=== PATIENT | male | born 1955 | race Caucasian/White ===

== ENCOUNTER 2018-09-13 12:11 | Outpatient (CLI) | payer OTHER, SELFPAY ==
--- NOTE | 2018-09-13 12:18 | DI.RAD.S_ITS ---
PROCEDURE: PAIN L INTERLAMINAR/CAUDAL INJ INDICATIONS: 61998 L5/S1 TL CED FINDINGS: Fluoroscopic spot filming was performed to verify placement of spinal needles at the L5-S1 level(s), as labeled on the films. Appropriate location(s) of the needle tip(s) was confirmed by injection of iodinated contrast. IMPRESSION: Fluoroscopy for pain management. Dictated by: Camden Ramos M.D. on 09/13/2018 at 17:41 Approved by: Camden Ramos M.D. on 09/13/2018 at 17:42
[2018-09-13 12:44] VITALS: BP 160/93; PULSE 59; RESP 18; TEMP 36.4; O2SAT 98
[2018-09-13 13:22] VITALS: BP 148/79; PULSE 67; RESP 18; O2SAT 97
[2018-09-13] MEDS: MIDAZOLAM 5 MG/5 ML VIAL IV (13:25)
[2018-09-13 13:27] VITALS: BP 118/61; PULSE 65; RESP 18; O2SAT 96
--- NOTE | 2018-09-13 13:38 | P.PCN_ITS ---
Procedures Date/Time Date of procedure: 09/13/18 Time of procedure: 13:37 General Procedure description: PROVIDER: Bill Rodríguez DO Operative Note PREOP DIAGNOSIS 1. HNP WITH RADICULAR FEATURES, 2. MULTILEVEL CENTRAL STENOSIS, POST OP DIAGNOSIS 1. HNP WITH RADICULAR FEATURES, 2. MULTILEVEL CENTRAL STENOSIS, PROCEDURES 1. FLUORSCOPICALLY GUIDED CONTRAST CONTROLLED INTERLAMINAR EPIDURAL STEROID INJECTION - L5/S1 PHYSICIAN: Bill Rodríguez DO INDICATIONS Giorgi is referred by for treatment of Bilateral Foraminal Stenosis L>R LE symptoms. FINDINGS Multilevel Central Spinal Stenosis with Nerve Root Compression DESCRIPTION OF PROCEDURE Fluoroscopically guided, contrast-controlled L5/S1 translaminar epidural steroid injection. Following denial of allergy and review of potential side effects and complications, including, but not necessarily limited to, infection, allergic reaction, local tissue breakdown, temporary as well as permanent nerve injury, paralysis, stroke and possible , the patient indicated that the patient understood and agreed to proceed. An informed consent document was signed by the patient, witnessed by a nurse, and placed in the patient's chart. Additionally, other treatment options including modalities, medications, and physical therapy were reviewed with the patient. After review of previous anaesthesic history and IV conscious sedation the patient was deemed safe to proceed with todays procedure with IV conscious sedation as ASA class II designation. Safety time-out was performed to confirm patient ID, procedure to be performed and site of procedure. IV sedation was accomplished with a combination of 4mg of Versed administered by the RN after DO order, titrated to patient comfort during the course of the procedure while the patient remained responsive to all verbal commands. In the prone position, following sterile prep and drape of the lumbar region, the L5/S1 translaminar space was identified fluoroscopically. The skin was anesthetized via a 25-gauge, 1.5-inch needle with 1% lidocaine solution. At this point, a 22-gauge short bevel spinal needle was atraumatically introduced and advanced under fluoroscopic guidance into the region of the L5/S1 translaminar space. Depth was confirmed on lateral view. Radiological data, including multiple fluoroscopic views of the lumbar spine, reveal a spinal needle at the L5/S1 translaminar space. Lateral views then show placement of the needle in the epidural space. Subsequent views show contrast material flowing superiorly and inferiorly in the epidural space. No vascular or intrathecal uptake is observed. At this point, using loss of resistance technique with saline and air, the epidural space was entered. This was confirmed following negative aspiration with injection of approximately 1.5 cc of Isovue 200, showing excellent epidural flow without vascular or intrathecal uptake. At this point, 1 cc of 1 % lidocaine solution combined with 3 cc or 20 mg of dexamethasone and 80mg Depo medrol was injected without incident. The patent tolerated the procedure without signs of symptoms of complications prior to transfer to the recovery area for further monitoring. The patient was then transferred to the recovery area where they were observed for an appropriate period of time after the injection. The patient reported a VAS score of 6 prior to the procedure and a post-procedure VAS of 0. Total Fluoroscopy Time: 11.8 seconds Total Conscious Sedation Time: 24min POST OP INSTRUCTIONS The patient was provided a Pain Log to continue to record their response to the target-specific procedure prior to follow-up visit with their referring physician. Additionally, specific post-injection care instructions and a contact number to our office were provided if concerns arise regarding possible complications associated with the procedure are suspected. Bill Rodríguez DO Complications: none
[2018-09-13 13:41] VITALS: BP 118/69; PULSE 61; RESP 16; O2SAT 96
--- NOTE | 2018-09-13 13:42 | PC.NURSE ---
ACCEPTED PT CARE IN POST PROC AREA IN STABLE CONDITION
[2018-09-13 13:47] VITALS: BP 124/87; PULSE 59; RESP 16; O2SAT 96
--- NOTE | 2018-09-13 13:47 | PC.NURSE ---
pt tolerated procedure, is still alert and awake, able to get off the table with standby assist. Transferred pt via wheelchair to pre procedure room, Resumed monitoring by Samia SAHNI.
[2018-09-13] MEDS: IOPAMIDOL 15 ML VIAL 3 ML INJ (13:49)
[2018-09-13] MEDS: BUPIVACAINE 0.25% (PF) VIAL 2 ML INJ (13:49)
[2018-09-13] MEDS: methylPREDNISolone acetate 80 MG/ML VIAL INJ (13:50)
[2018-09-13] MEDS: DEXAMETHASONE 10 MG/ML VIAL 20 MG INJ (13:50)
[2018-09-13 13:55] VITALS: BP 105/48; PULSE 57; RESP 16; O2SAT 96
--- NOTE | 2018-09-14 16:05 | PC.NURSE ---
FOLLOW UP CALL MADE. PT STATES BILAT HIP PAIN IS SIGNIFICANTLY BETTER THAN BEFORE PROCEDURE. DENIES QUESITONS/CONCERNS.
== END 2018-09-13 14:30 | disposition home or self-care (01) ==
LOC: RAD 12:15
PROVIDERS: PCP Internal Medicine; Visit Provider Physical Medicine & Rehabilitation
DX: M51.17 Intervertebral disc disorders with radiculopathy, lumbosacral region (principal); M51.16 Intervertebral disc disorders with radiculopathy, lumbar region; M48.07 Spinal stenosis, lumbosacral region
CPT/HCPCS: 62323; 99152; J1040; J1100; J2250

== ENCOUNTER → 2018-11-03 09:09 | Outpatient (CLI) | payer OTHER, SELFPAY ==
--- NOTE | 2018-11-03 09:10 | DI.RAD.S_ITS ---
PROCEDURE: XR LUMBAR SPINE MIN 4V INDICATIONS: Bilateral L4-5 L5-S1 facet pain TECHNIQUE: 5 views of the lumbar spine were acquired. COMPARISON: [facility] GARIMA Becker, XR LUMBAR SPINE WITH OBLIQUES, 08/26/2017, 7:52. FINDINGS: Bones: No fracture or focal osseous destruction. Grade 1 anterolisthesis of L3 on L4. Diffuse facet arthropathy. Multilevel endplate spurring and sclerosis. [id number] narrowing of the L5-S1, L3-L4 disc spaces although this appears unchanged. There is also grade one anterolisthesis of L4 on L5 although this is unchanged. Mild levocurvature as before. Mild bilateral hip degeneration. Soft tissues: Overlying bowel gas pattern is normal. No suspicious soft tissue calcifications. Oblique images: No pars defects. IMPRESSION: No interval change in levocurvature of the lumbar spine, with diffuse spondylosis most pronounced at L3-L4 and L5-S1 and facet arthropathy. Grade 1 anterolisthesis of L3 on L4 and L4 on L5 as before. Dictated by: Tim Betancourt M.D. on 11/03/2018 at 11:02 Approved by: Tim Betancourt M.D. on 11/03/2018 at 11:04
== END ==
PROVIDERS: PCP Internal Medicine; Visit Provider Physical Medicine & Rehabilitation
DX: M47.817 Spondylosis without myelopathy or radiculopathy, lumbosacral region (principal); M47.816 Spondylosis without myelopathy or radiculopathy, lumbar region; M43.16 Spondylolisthesis, lumbar region
CPT/HCPCS: 72110

== ENCOUNTER 2018-11-22 08:07 | Outpatient (CLI) | payer OTHER, SELFPAY ==
[2018-11-22] VITALS (9 sets, daily range): BP systolic 126–174; BP diastolic 83–116; PULSE 55–71; RESP 16–18; TEMP 36.1; O2SAT 93–98
--- NOTE | 2018-11-22 08:10 | DI.RAD.S_ITS ---
PROCEDURE: PAIN L/SI FACET INJ/BLK 1STL INDICATIONS: Bilateral L3-4 L4-5 facet FINDINGS: Fluoroscopic spot filming was performed to verify placement of spinal needles at the facet joints of the L3-4 and L4-5 levels bilaterally, as labeled on the films. Appropriate location(s) of the needle tip(s) was confirmed by injection of iodinated contrast. IMPRESSION: Bilateral facet joint localization at L3-4 and L4-5 for anticipated facet joint steroid injections. Dictated by: Jimbo Cotter M.D. on 11/22/2018 at 11:07 Approved by: Jimbo Cotter M.D. on 11/22/2018 at 11:08
[2018-11-22] MEDS: MIDAZOLAM 5 MG/5 ML VIAL IV (09:18)
[2018-11-22] MEDS: LIDOCAINE 1% 20 ML INJ 10 ML INJ (09:26)
[2018-11-22] MEDS: BUPIVACAINE 0.5% (PF) VIAL 2 ML INJ (09:27)
[2018-11-22] MEDS: IOPAMIDOL 15 ML VIAL 3 ML INJ (09:27)
[2018-11-22] MEDS: BETAMETHASONE 30 MG/5 ML MDV 12 MG INJ (09:28)
--- NOTE | 2018-11-22 09:37 | P.PCN_ITS ---
Procedures Date/Time Date of procedure: 11/22/18 Time of procedure: 09:36 General Procedure description: PREOP DIAGNOSIS 1. FACET ARTHROPATHY 2. AXIAL LBP 3. MULTILEVEL DDD POST OP DIAGNOSIS 1. FACET ARTHROPATHY 2. AXIAL LBP 3. MULTILEVEL DDD PROCEDURES 1. FLUORSCOPICALLY GUIDED CONTRAST CONTROLLED FACET JOINT INJECTIONS BILATERAL L3/4, L4/5 PHYSICIAN: Bill Rodríguez DO INDICATIONS: Giorgi is referred by Dr. Nicholson for treatment of Axial LBP FINDINGS Multilevel Facet Arthropathy with Clinically significant axial LBP DESCRIPTION OF PROCEDURE Fluoroscopically guided, contrast-controlled bilateral L3/4, L4/5 facet joint injections. Following denial of allergy and review of potential side effects and complications, including, but not necessarily limited to, infection, allergic reaction, local tissue breakdown, stroke, temporary or permanent nerve injury, paralysis, and possible , the patient indicated that the patient understood and agreed to proceed. An informed consent document was signed by the patient, witnessed by a nurse, and placed in the patient's chart. Additionally, other treatment options including medications, modalities, and physical therapy were reviewed with the patient. After review of previous anaesthesic history and IV conscious sedation the patient was deemed safe to proceed with todays procedure with IV conscious sedation as ASA class II designation. Safety time-out was performed to confirm patient ID, procedure to be performed and site of procedure. IV sedation was accomplished with a combination of 3mg of Versed was administered by the RN after DO order, titrated to patient comfort during the course of the procedure while the patient remained responsive to all verbal commands. In the prone position, following sterile prep and drape of the lumbar region, the posterior aspect of the L3/4, L4/5 facet joints were identified fluoroscopically. The skin was anesthetized via a 25-gauge 1.5-inch needle with 1% lidocaine solution into the corresponding facet joints. At this point, a 22- gauge 3.5-inch spinal needle was atraumatically introduced and advanced under fluoroscopic guidance into the corresponding facet joints. Following negative aspiration, injections of approximately 0.2-cc of Isovue 200 confirmed interarticular placement without vascular uptake. The identical procedure was then performed at the L3/4, L4/5 facet joints on the left. Radiological data, including multiple fluoroscopic views of the lumbosacral spine, reveal a spinal needle at the L3/4, L4/5 facet joints bilaterally. Subsequent views show flow of contrast material both superiorly and inferiorly within the joint space without vascular or intrathecal uptake. At this point, a total of 0.5 cc including a mixture of 0.25 cc Marcaine and 0.25 cc betamethasone was injected without complication into each of the corresponding facet joints. The patient tolerated the procedure well without signs or symptoms of complications prior to transfer to the recovery area continued monitoring without incident. The patient was then transferred to the recovery area where they were observed for an appropriate period of time after the injection. The patient reported a VAS score of 7 prior to the procedure and a post-procedure VAS of 0. Total Fluoroscopy Time: 20.3 seconds Total Conscious Sedation Time: 24min POST OP INSTRUCTIONS The patient was provided a Pain Log to continue to record their response to the target-specific procedure prior to follow-up visit with their referring physician. Additionally, specific post-injection care instructions and a contact number to our office were provided if concerns arise regarding possible complications associated with the procedure are suspected. Bill Rodríguez DO Complications: none
--- NOTE | 2018-11-22 10:34 | PC.NURSE ---
Pt returned from post procedure awake and alert and in a w/c. He was able to get from w/c to chair with standby assist. Resumed monitoring from Samia SAHNI.
--- NOTE | 2018-11-23 14:38 | PC.NURSE ---
FOLLOW UP CALL MADE, PT STATES HE FEELS FINE AND HAS ZERO PAIN. PT C/O AKWARDNESS RT DISORGANIZATION IN PROCEDURE ROOM AND PERSONAL CONVERSATION AMONG TEAM DURING PROCEDURE. THANKED PT FOR FEEDBACK AND APOLOGIZED FOR HIS DISCOMFORT. WILL RELAY INFORMATION TO DR. JETER.
== END 2018-11-22 10:06 ==
LOC: RAD 08:09
PROVIDERS: PCP Internal Medicine; Visit Provider Physical Medicine & Rehabilitation
DX: M47.816 Spondylosis without myelopathy or radiculopathy, lumbar region (principal); M51.36 Other intervertebral disc degeneration, lumbar region; M54.5 Low back pain
CPT/HCPCS: 64493; 64494; 99152; J0702; J2250; J3010

== ENCOUNTER → 2018-11-28 11:15 | Outpatient (CLI) | payer OTHER, SELFPAY ==
--- NOTE | 2018-11-28 11:19 | DI.RAD.S_ITS ---
PROCEDURE: XR KNEE STANDING BI INDICATIONS: Knee pain TECHNIQUE: 2 views of the left knee, and 2 views of the right knee. COMPARISON: [facility], CR, XR KNEE ARTHRITIC SERIES LT, 07/03/2016, 7:44. [facility], MR KNEE LT WO CON, 07/14/2016, 11:19. FINDINGS: Bones: No acute fractures or dislocations. There is moderate to severe bilateral medial, left greater than right compartment narrowing, demonstrate interval progression compared to 2016. Smaller as is subchondral sclerosis and periarticular osteophytes are present. In addition, moderate bilateral patellofemoral compartment narrowing is present. Soft tissues: No knee joint effusions. No suspicious soft tissue calcification. IMPRESSION: Medial and patellofemoral compartment narrowing bilaterally most significant in the medial compartment on the left as above. Overall appearance is most suggestive of osteoarthritis. Dictated by: Erendira Hunt M.D. on 11/28/2018 at 11:58 Approved by: Erendira Hunt M.D. on 11/28/2018 at 12:00
== END ==
PROVIDERS: PCP Internal Medicine; Visit Provider Physical Medicine & Rehabilitation
DX: M25.562 Pain in left knee (principal); M25.561 Pain in right knee; S89.90XA Unspecified injury of unspecified lower leg, initial encounter
CPT/HCPCS: 73565

== ENCOUNTER 2019-09-12 07:23 | Outpatient (CLI) | payer OTHER, SELFPAY ==
[2019-09-12] VITALS (8 sets, daily range): BP systolic 149–210; BP diastolic 90–113; PULSE 58–67; RESP 16; TEMP 36.1; O2SAT 94–98
--- NOTE | 2019-09-12 07:24 | DI.RAD.S_ITS ---
PROCEDURE: PAIN L/S TRANSFORAMINAL INJECT INDICATIONS: SPINAL STENOSIS FINDINGS: Fluoroscopic spot filming was performed to verify placement of spinal needles at the L4-L5 level(s), as labeled on the films. Appropriate location(s) of the needle tip(s) was confirmed by injection of iodinated contrast. Dictated by: Tim Betancourt M.D. on 09/12/2019 at 11:11 Approved by: Tim Betancourt M.D. on 09/12/2019 at 11:11
--- NOTE | 2019-09-12 08:57 | PC.NURSE ---
Dr Rodríguez AWARE OF HIGH BP, NO NEW ORDERS, HE HAS STATED IT'S SAFE TO PROCEED.
[2019-09-12] MEDS: MIDAZOLAM 5 MG/5 ML VIAL IV (08:58)
[2019-09-12] MEDS: fentaNYL 100 MCG/2 ML INJ 50 MCG IV (08:59)
[2019-09-12] MEDS: BUPIVACAINE 0.25% (PF) VIAL 2 ML INJ (09:10)
[2019-09-12] MEDS: IOPAMIDOL 15 ML VIAL 3 ML INJ (09:10)
[2019-09-12] MEDS: DEXAMETHASONE 10 MG/ML VIAL 20 MG INJ (09:10)
[2019-09-12] MEDS: BETAMETHASONE 30 MG/5 ML MDV 6 MG INJ (09:11)
--- NOTE | 2019-09-12 09:17 | PC.NURSE ---
ASSISTING PT OFF TABLE AND TRANSPORTING TO POST PROC AREA IN STABLE CONDITION. PASSING RN CARE OF PT TO NOLA Woods RN.
--- NOTE | 2019-09-12 09:26 | P.PCN_ITS ---
Procedures Date/Time Date of procedure: 09/12/19 Time of procedure: 09:26 General Procedure description: PREOP DIAGNOSIS 1. FORMAINAL STENOSIS WITH LE SYMPTOMS POST OP DIAGNOSIS 1. FORMAINAL STENOSIS WITH LE SYMPTOMS PROCEDURES 1. FLUOROSCOPICALLY GUIDED CONTRAST CONTROLLED TRANSFORAMINAL EPIDURAL STEROID INJECTION - LEFT L4/5 PHYSICIAN: Bill Rodríguez DO INDICATIONS: Giorgi is referred by for treatment of Foraminal Stenosis with Left LE Symptoms FINDINGS Foraminal Nerve Root Compression secondary to disc disease and facet hypertrophy DESCRIPTION OF PROCEDURE: Following review of allergy and review of potential side effects and complications, including, but not necessarily limited to, infection, allergic reaction, local tissue breakdown, stroke, temporary or permanent nerve injury, paralysis, and possible , the patient indicated that the patient understood and agreed to proceed. An informed consent document was signed by the patient, witnessed by a nurse, and placed in the patient's chart. Additionally, other treatment options including medications, modalities, and physical therapy were reviewed with the patient. After review of previous anaesthesic history and IV conscious sedation the joni ent was deemed safe to proceed with todays procedure with IV conscious sedation as ASA class II designation. Safety time-out was performed to confirm patient ID, procedure to be performed and site of procedure. IV sedation was accomplished with a combination of 4mg of Versed and 50mcg of Fentanyl administered by the RN after DO order, titrated to patient comfort during the course of the procedure while the patient remained responsive to all verbal commands In the prone position following sterile prep and drape of the lumbar region, the left L4/5 posterior neuroforamen was identified fluoroscopically. The skin was anesthetized via a 25-gauge 1.5-inch needle with 1% lidocaine solution. At this point, a 22-gauge 5-inch spinal needle was atraumatically introduced and advanced under fluoroscopic guidance through the posterior left L4/5 neuroforamen to approximately the anterior aspect of the canal. Depth was confirmed on lateral view. Following negative aspiration, injection of appro ximately 1.5cc of Isovue 200 under live fluoroscopy in the AP view confirmed excellent flow along the nerve root, into the epidural space without vascular or intrathecal uptake observed Radiological data, including multiple fluoroscopic views of the lumbosacral spine, reveal a spinal needle at the left L4/5 posterior neuroforamen. Subsequent views show flow of contrast material flowing superiorly and inferiorly along the nerve root confirming epidural flow. Subsequently, a test dose of 1.5 cc of 1% lidocaine solution was administered and patient was observed for two minutes for signs or symptoms of complications, including abdominal pain, shortness of breath, bilateral upper or lower extremity weakness, nausea and vomiting, prior to steroid injection. At this point, a total of 3cc or 20mg of dexamethasone and 6mg of betamethasone was injected without incident. The procedure tolerated the procedure well without signs or symptoms of complications prior to transfer to the recovery area continued monitoring without incident. The patient was then transferred to the recovery area where they were observed for an appropriate time after the injection. The patient reported a VAS score of 7 prior to the procedure and a post- procedure VAS of 0. Total Fluoroscopy Time: 19 seconds Total Conscious Sedation Time: 24min POST OP INSTRUCTIONS The patient was provided a Pain Log to continue to record their response to the target-specific procedure prior to follow-up visit with their referring physician. Additionally, specific post-injection care instructions and a contact number to our office were provided if concerns arise regarding possible complications associated with the procedure are suspected. Bill Rodríguez DO Complications: none
== END 2019-09-12 09:48 | disposition home or self-care (01) ==
PROVIDERS: PCP Internal Medicine; Visit Provider Physical Medicine & Rehabilitation
DX: M48.061 Spinal stenosis, lumbar region without neurogenic claudication (principal); M51.16 Intervertebral disc disorders with radiculopathy, lumbar region
CPT/HCPCS: 64483; 99152; J0702; J1100; J2250; J3010

== ENCOUNTER → 2020-02-08 14:00 | Outpatient (CLI) | payer OTHER, SELFPAY | PROVIDERS: PCP Internal Medicine; Referring Provider Physical Medicine & Rehabilitation; Visit Provider Physical Medicine & Rehabilitation | DX: G62.9 Polyneuropathy, unspecified (principal) | CPT/HCPCS: 95886; 95912 ==

== ENCOUNTER → 2020-09-23 09:10 | Outpatient (CLI) | payer OTHER, SELFPAY ==
--- NOTE | 2020-09-23 09:11 | DI.RAD.S_ITS ---
PROCEDURE: XR LUMBAR SPINE MIN 4V INDICATIONS: UPDATE IMAGING TECHNIQUE: 5 views of the lumbar spine were acquired, including bilateral oblique views. COMPARISON: [facility], MR LUMBAR SPINE WITHOUT CONTRAST, 09/02/2017, 10:20. [facility], CR, XR LUMBAR SPINE WITH OBLIQUES, 08/26/2017, 7:52. FINDINGS: Bones: 5 nonrib-bearing vertebrae are present. There is trace levoconvex curvature of the lumbar spine. Grade 1 anterolisthesis of L3 on L4 does not appear significantly changed when compared to the prior exam from 08/26/2017. No vertebral body compression fractures. No suspicious bony lesions. Multilevel disc space narrowing and degenerative endplate changes are seen that are slightly more prominent at the L5-S1 and L3-4 levels. Prominent facet hypertrophy is seen throughout the lumbar spine that is worst at the L3-4 level. Soft tissues: Overlying bowel gas pattern is normal. No suspicious soft tissue calcifications. Atherosclerotic calcifications are seen in the aorta. Cholecystectomy clips are present. Oblique images: No pars defects. IMPRESSION: Multilevel degenerative changes appear mildly progressed when compared to the radiographs from 08/26/2017. If indicated clinically, lumbar spine MRI may be obtained for further evaluation of soft tissues and spinal canal contents. Dictated by: Luke Almaguer M.D. on 09/23/2020 at 10:55 Approved by: Luke Almaguer M.D. on 09/23/2020 at 11:01
== END ==
PROVIDERS: PCP Internal Medicine; Referring Provider Physical Medicine & Rehabilitation; Visit Provider Physical Medicine & Rehabilitation
DX: M47.817 Spondylosis without myelopathy or radiculopathy, lumbosacral region (principal); M46.96 Unspecified inflammatory spondylopathy, lumbar region
CPT/HCPCS: 72110

== ENCOUNTER → 2020-11-12 12:31 | Outpatient (CLI) | payer OTHER, SELFPAY ==
[2020-11-12 13:35] LABS: COVID19 -Nasal RAPID Negative (Negative)
== END ==
PROVIDERS: PCP Internal Medicine; Visit Provider Physical Medicine & Rehabilitation
DX: Z20.822 Contact with and (suspected) exposure to COVID-19 (principal)
CPT/HCPCS: 87635; C9803

== ENCOUNTER 2020-11-14 07:24 | Outpatient (CLI) | payer OTHER, SELFPAY ==
[2020-11-14] VITALS (10 sets, daily range): BP systolic 126–188; BP diastolic 77–110; PULSE 53–82; RESP 17–21; TEMP 36.2; O2SAT 93–98
--- NOTE | 2020-11-14 07:26 | DI.RAD.S_ITS ---
PROCEDURE: PAIN L INTERLAMINAR/CAUDAL INJ INDICATIONS: SPONDYLOSIS COMPARISON: [facility], XA, PAIN L INTERLAMINAR/CAUDAL INJ, 09/13/2018, 13:29. FINDINGS: Fluoroscopic spot filming was performed to verify placement of a spinal needle at the L5-S1 level, as labeled on the films. Appropriate location of the needle tip was confirmed by injection of iodinated contrast. IMPRESSION: No significant intraprocedural abnormality. Dictated by: Gilmer Voss M.D. on 11/14/2020 at 8:37 Approved by: Gilmer Voss M.D. on 11/14/2020 at 8:37
[2020-11-14] MEDS: fentaNYL 100 MCG/2 ML INJ 50 MCG IV (08:32)
[2020-11-14] MEDS: IOPAMIDOL 15 ML VIAL 3 ML INJ (08:38)
[2020-11-14] MEDS: BUPIVACAINE 0.25% (PF) VIAL 2 ML INJ (08:38)
[2020-11-14] MEDS: DEXAMETHASONE 10 MG/ML VIAL 20 MG INJ (08:39)
[2020-11-14] MEDS: methylPREDNISolone acetate 80 MG/ML VIAL INJ (08:39)
[2020-11-14] MEDS: MIDAZOLAM 5 MG/5 ML VIAL IV (08:41)
--- NOTE | 2020-11-14 08:48 | P.PCN_ITS ---
Date/Time/Diagnoses Date of procedure: 11/14/20 Time of procedure: 08:48 Pre-procedure diagnosis: 1. HNP WITH RADICULAR FEATURES, 2. MULTILEVEL CENTRAL STENOSIS, Post-procedure diagnosis: same Procedure Notes Procedure: 1. FLUOROSCOPICALLY GUIDED CONTRAST CONTROLLED INTERLAMINAR EPIDURAL STEROID INJECTION - L5/S1 Indications: Giorgi is referred by Dr. Nicholson for treatment of Bilateral Foraminal Stenosis L>R LE symptoms. Physician: Bill Rodríguez Total Fluoroscopy time (seconds): 8 Total sedation minutes: 12 Complications: none Procedure in detail & Post-procedure care: FINDINGS Multilevel Central Spinal Stenosis with Nerve Root Compression DESCRIPTION OF PROCEDURE Fluoroscopically guided, contrast-controlled L5/S1 translaminar epidural steroid injection. Following review of allergy and review of potential side effects and complications, including, but not necessarily limited to, infection, allergic reaction, local tissue breakdown, temporary as well as permanent nerve injury, paralysis, stroke and possible , the patient indicated that the patient understood and agreed to proceed. An informed consent document was signed by the patient, witnessed by a nurse, and placed in the patient's chart. Additionally, other treatment options including modalities, medications, and physical therapy were reviewed with the patient. After review of previous anaesthesic history and IV conscious sedation the patient was deemed safe to proceed with today?s procedure with IV conscious sedation as ASA class II designation. Safety time-out was performed to confirm patient ID, procedure to be performed and site of procedure. IV sedation was accomplished with a combination of 4mg of Versed and 50mcg of Fentanyl administered by the RN after DO order, titrated to patient comfort during the course of the procedure while the patient remained responsive to all verbal commands. In the prone position, following sterile prep and drape of the lumbar region, the L5/S1 translaminar space was identified fluoroscopically. The skin was anesthetized via a 25-gauge, 1.5-inch needle with 1% lidocaine solution. At this point, a 22-gauge short bevel spinal needle was atraumatically introduced and advanced under fluoroscopic guidance into the region of the L5/S1 translaminar space. Depth was confirmed on lateral view. Radiological data, including multiple fluoroscopic views of the lumbar spine, reveal a spinal needle at the L5/S1 translaminar space. Lateral views then show placement of the needle in the epidural space. Subsequent views show contrast material flowing superiorly and inferiorly in the epidural space. No vascular or intrathecal uptake is observed. At this point, using loss of resistance technique with saline and air, the epidural space was entered. This was confirmed following negative aspiration with injection of approximately 1.5cc of Isovue 200, showing excellent epidural flow without vascular or intrathecal uptake. At this point, 1 cc of 1% lidocaine solution combined with 3cc or 20mg of dexamethasone and 80mg of depo- medrol was injected without incident. The patent tolerated the procedure without signs of symptoms of complications prior to transfer to the recovery area for further monitoring. The patient was then transferred to the recovery area where they were observed for an appropriate period of time after the injection. The patient reported a VAS score of 6 prior to the procedure and a post-procedure VAS of 0. POST OP INSTRUCTIONS The patient was provided a Pain Log to continue to record their response to the target-specific procedure prior to follow-up visit with their referring physician. Additionally, specific post-injection care instructions and a contact number to our office were provided if concerns arise regarding possible complications associated with the procedure are suspected.
== END 2020-11-14 09:15 | disposition home or self-care (01) ==
PROVIDERS: PCP Internal Medicine; Referring Provider Internal Medicine; Visit Provider Physical Medicine & Rehabilitation
DX: G62.9 Polyneuropathy, unspecified (principal); M43.16 Spondylolisthesis, lumbar region; M48.061 Spinal stenosis, lumbar region without neurogenic claudication; M51.27 Other intervertebral disc displacement, lumbosacral region
CPT/HCPCS: 62323; 99152; J1040; J1100; J2250; J3010

== ENCOUNTER → 2021-03-31 10:08 | Outpatient (CLI) | payer OTHER, SELFPAY ==
[2021-03-31 11:55] LABS: COVID19 -Nasal RAPID Negative (Negative)
== END ==
PROVIDERS: PCP Internal Medicine; Visit Provider Physical Medicine & Rehabilitation
DX: Z20.822 Contact with and (suspected) exposure to COVID-19 (principal)
CPT/HCPCS: 87635; C9803

== ENCOUNTER 2021-04-03 07:52 | Outpatient (CLI) | payer BC, SELFPAY ==
[2021-04-03] VITALS (7 sets, daily range): BP systolic 149–201; BP diastolic 77–119; PULSE 56–65; RESP 10–19; TEMP 36.6; O2SAT 96–98
--- NOTE | 2021-04-03 07:56 | DI.RAD.S_ITS ---
PROCEDURE: PAIN L INTERLAMINAR/CAUDAL INJ INDICATIONS: L5/S1 TL CED COMPARISON: [facility], CR, XR PELVIS WITH LATERAL HIP RIGHT, 07/04/2020, 7:55. [facility], CR, XR LUMBAR SPINE MIN 4V, 09/23/2020, 9:17. FINDINGS: Fluoroscopic spot filming was performed to verify placement of spinal needles at the L5-S1 level(s), as labeled on the films. Appropriate location(s) of the needle tip(s) was confirmed by injection of iodinated contrast. IMPRESSION: Fluoroscopy for pain management. Dictated by: Camden Ramos M.D. on 04/03/2021 at 9:57 Approved by: Camden Ramos M.D. on 04/03/2021 at 9:58
[2021-04-03] MEDS: MIDAZOLAM 5 MG/5 ML VIAL IV (08:36)
[2021-04-03] MEDS: fentaNYL 100 MCG/2 ML INJ 50 MCG IV (08:36)
[2021-04-03] MEDS: BUPIVACAINE 0.25% (PF) VIAL 2 ML INJ (08:41)
[2021-04-03] MEDS: IOPAMIDOL 15 ML VIAL 3 ML INJ (08:41)
[2021-04-03] MEDS: DEXAMETHASONE 10 MG/ML VIAL 20 MG INJ (08:42)
[2021-04-03] MEDS: methylPREDNISolone acetate 80 MG/ML VIAL INJ (08:42)
--- NOTE | 2021-04-03 08:51 | P.PCN_ITS ---
Date/Time/Diagnoses Date of procedure: 04/03/21 Time of procedure: 08:51 Pre-procedure diagnosis: 1. HNP WITH RADICULAR FEATURES, 2. MULTILEVEL CENTRAL STENOSIS, Post-procedure diagnosis: same Procedure Notes Procedure: 1. FLUOROSCOPICALLY GUIDED CONTRAST CONTROLLED INTERLAMINAR EPIDURAL STEROID INJECTION - L5/S1 Indications: Giorgi is referred by Dr. Nicholson for treatment of Bilateral Foraminal Stenosis L>R LE symptoms. Physician: Bill Rodríguez Total Fluoroscopy time (seconds): 7 Total sedation minutes: 9 Complications: none Procedure in detail & Post-procedure care: FINDINGS Multilevel Central Spinal Stenosis with Nerve Root Compression DESCRIPTION OF PROCEDURE Fluoroscopically guided, contrast-controlled L5/S1 translaminar epidural steroid injection. Following review of allergy and review of potential side effects and complications, including, but not necessarily limited to, infection, allergic reaction, local tissue breakdown, temporary as well as permanent nerve injury, paralysis, stroke and possible , the patient indicated that the patient understood and agreed to proceed. An informed consent document was signed by the patient, witnessed by a nurse, and placed in the patient's chart. Additionally, other treatment options including modalities, medications, and physical therapy were reviewed with the patient. After review of previous anaesthesic history and IV conscious sedation the patient was deemed safe to proceed with today?s procedure with IV conscious sedation as ASA class II designation. Safety time-out was performed to confirm p atient ID, procedure to be performed and site of procedure. IV sedation was accomplished with a combination of 2mg of Versed and 50mcg of Fentanyl administered by the RN after DO order, titrated to patient comfort during the course of the procedure while the patient remained responsive to all verbal commands. In the prone position, following sterile prep and drape of the lumbar region, the L5/S1 translaminar space was identified fluoroscopically. The skin was anesthetized via a 25-gauge, 1.5-inch needle with 1% lidocaine solution. At this point, a 22-gauge short bevel spinal needle was atraumatically introduced and advanced under fluoroscopic guidance into the region of the L5/S1 translaminar space. Depth was confirmed on lateral view. Radiological data, including multiple fluoroscopic views of the lumbar spine, reveal a spinal needle at the L5/S1 translaminar space. Lateral views then show placement of the needle in the epidural space. Subsequent views show contrast material flowing superiorly and inferiorly in the epidural space. No vascular or intrathecal uptake is observed. At this point, using loss of resistance technique with saline and air, the epidural space was entered. This was confirmed following negative aspiration with injection of approximately 1.5cc of Isovue 200, showing excellent epidural flow without vascular or intrathecal uptake. At this point, 1 cc of 1% lidocaine solution combined with 3cc or 20mg of dexamethasone and 80mg of depo medrol was injected without incident. The patent tolerated the procedure without signs of symptoms of complications prior to transfer to the recovery area for further monitoring. The patient was then transferred to the recovery area where they were observed for an appropriate period of time after the injection. The patient reported a VAS score of 6 prior to the procedure and a post-procedure VAS of 0. POST OP INSTRUCTIONS The patient was provided a Pain Log to continue to record their response to the target-specific procedure prior to follow-up visit with their referring physician. Additionally, specific post-injection care instructions and a contact number to our office were provided if concerns arise regarding possible complications associated with the procedure are suspected.
== END 2021-04-03 09:12 | disposition home or self-care (01) ==
LOC: RAD 07:55
PROVIDERS: PCP Internal Medicine; Referring Provider Physical Medicine & Rehabilitation; Visit Provider Physical Medicine & Rehabilitation
DX: M51.17 Intervertebral disc disorders with radiculopathy, lumbosacral region (principal); M48.07 Spinal stenosis, lumbosacral region
CPT/HCPCS: 62323; J1040; J1100; J2250; J3010

== ENCOUNTER → 2021-08-18 09:53 | Outpatient (CLI) | payer BC, MEDICARE, SELFPAY ==
[2021-08-18 14:05] LABS: COVID19 -Nasal RAPID Negative (Negative)
== END ==
PROVIDERS: PCP Internal Medicine; Visit Provider Physical Medicine & Rehabilitation
DX: Z20.822 Contact with and (suspected) exposure to COVID-19 (principal)
CPT/HCPCS: 87635; C9803

== ENCOUNTER 2021-08-19 08:00 | Outpatient (CLI) | payer BC, SELFPAY ==
[2021-08-19] VITALS (8 sets, daily range): BP systolic 157–212; BP diastolic 87–132; PULSE 62–67; RESP 12–22; TEMP 36.3; O2SAT 95–100
--- NOTE | 2021-08-19 08:03 | DI.RAD.S_ITS ---
PROCEDURE: PAIN L/S FACET INJ/BLK 1ST MITUL COMPARISON: None. INDICATIONS: SPONDYLOSIS FINDINGS: Fluoroscopic spot filming was performed to verify placement of spinal needles on the right and on the left at the L3, L4, and L5 levels, as labeled on the films. Appropriate location of the needle tips was confirmed by injection of iodinated contrast. IMPRESSION: Intraprocedural examination within normal limits. Dictated by: Gilmer Voss M.D. on 08/19/2021 at 9:08 Approved by: Gilmer Voss M.D. on 08/19/2021 at 9:09
[2021-08-19] MEDS: fentaNYL 100 MCG/2 ML INJ (09:15)
[2021-08-19] MEDS: MIDAZOLAM 5 MG/5 ML VIAL IV (09:15)
[2021-08-19] MEDS: IOPAMIDOL 15 ML VIAL INJ (09:19)
[2021-08-19] MEDS: BUPIVACAINE 0.5% (PF) VIAL 5 ML INJ (09:20)
[2021-08-19] MEDS: LIDOCAINE 1% 20 ML INJ (09:20)
--- NOTE | 2021-08-19 09:36 | P.PCN_ITS ---
Date/Time/Diagnoses Date of procedure: 08/19/21 Time of procedure: 09:36 Pre-procedure diagnosis: 1. FACET ARTHROPATHY Post-procedure diagnosis: same Procedure Notes Procedure: 1. BILATERAL L3, L4 AND L5 DIAGNOSTIC MB BLOCKS Indications: Giorgi is referred by Dr. Nicholson for treatment of Bilateral Axial LBP. Physician: Bill Rodríguez Total Fluoroscopy time (seconds): 13 Total sedation minutes: 15 Complications: none Procedure in detail & Post-procedure care: DESCRIPTION OF PROCEDURE Fluoroscopically guided, contrast-controlled bilateral L3, L4 AND L5 medial branch blocks with 0.5cc of 0.5% Marcaine. Following review of allergy and review of potential side effects and complications, including, but not necessarily limited to, infection, allergic reaction, local tissue breakdown, nerve injury, paralysis, stroke and possible , the patient indicated that the patient understood and agreed to proceed. An informed consent document was signed by the patient, witnessed by a nurse, and placed in the patient's chart. After review of previous anaesthesic history and IV conscious sedation the patient was deemed safe to proceed with today's procedure with IV conscious sedation as ASA class II designation. Safety time-out was performed to confirm patient ID, procedure to be performed and site of procedure. IV sedation was accomplished with a combination of 3mg of Versed and 50mcg of Fentantyl was administered by the RN after DO order, titrated to patient comfort during the course of the procedure while the patient remained responsive to all verbal commands In the prone position, following sterile prep and drape of the lumbar region, the right L3, L4 AND L5 anatomical location of the medial branch of the dorsal ramus was identified fluoroscopically. Subsequently an anesthetic skin wheal using 1% lidocaine solution was initiated at each of the anatomical spots. Subsequently then a 22-gauge 3.5-inch spinal needle was atraumatically introduced and advanced under fluoroscopic guidance at each of the corresponding sites at the right L3, L4 and L5 MB. After negative aspiration, 0.2cc of Isovue 200 was injected, confirming placement without vascular or intrathecal uptake. Subsequently then 0.5cc of 0.5% Marcaine solution was injected at each of the corresponding sites at the right L3, L4 and L5 medial branch locations. The identical procedure was replicated on the left. The patient tolerated the procedure well without signs or symptoms of complications. The patient tolerated the procedure well without signs or symptoms of complications prior to transfer to the recovery area continued monitoring without incident. Post-procedure, the patient was monitored initiating provocative activities to measure the amount of relief from block of the facetogenic pain. The patient reported a VAS of 7 prior to the procedure and a post-procedure VAS of 1. It has been a pleasure to assist in the diagnostic and therapeutic care of your patient. POST OP INSTRUCTIONS The patient was provided with a Pain Log to complete over the next several hours and subsequent days prior to the patient's follow up with the ordering physician. If the patient has wrapping machine helper relief to the solution applied, then they may be a candidate for medial branch rhizotomy. The patient is aware, was provided, once again, with a Pain Log and will follow up with the referring physician for review and clinical correlation
== END 2021-08-19 09:54 | disposition home or self-care (01) ==
LOC: RAD 08:02
PROVIDERS: PCP Internal Medicine; Referring Provider Physical Medicine & Rehabilitation; Visit Provider Physical Medicine & Rehabilitation
DX: M47.816 Spondylosis without myelopathy or radiculopathy, lumbar region (principal)
CPT/HCPCS: 64493; 64494; 99152; J2250; J3010

== ENCOUNTER → 2021-09-24 09:16 | Outpatient (CLI) | payer BC, SELFPAY ==
[2021-09-24 10:15] LABS: COVID19 -Nasal RAPID Negative (Negative)
== END ==
PROVIDERS: PCP Internal Medicine; Visit Provider Physical Medicine & Rehabilitation
DX: Z20.822 Contact with and (suspected) exposure to COVID-19 (principal)
CPT/HCPCS: 87635; C9803

== ENCOUNTER 2021-09-25 09:47 | Outpatient (CLI) | payer BC, SELFPAY ==
[2021-09-25] VITALS (8 sets, daily range): BP systolic 144–189; BP diastolic 69–97; PULSE 64–69; RESP 12–20; TEMP 36.4; O2SAT 95–97
--- NOTE | 2021-09-25 10:23 | DI.RAD.S_ITS ---
PROCEDURE: PAIN L INTERLAMINAR/CAUDAL INJ INDICATIONS: SPONDYLOSIS COMPARISON: [facility], XA, PAIN L INTERLAMINAR/CAUDAL INJ, 04/03/2021, 8:40. [facility], XA, PAIN L/S FACET INJ/BLK 1ST [facility]UL, 08/19/2021, 10:20. FINDINGS: Fluoroscopic spot filming was performed to verify placement of a spinal needle at the L4-L5 level, as labeled on the films. Appropriate location of the needle tip was confirmed by injection of iodinated contrast. IMPRESSION: Intraprocedural examination within normal limits. Dictated by: Gilmer Voss M.D. on 09/25/2021 at 9:53 Approved by: Gilmer Voss M.D. on 09/25/2021 at 9:54
[2021-09-25] MEDS: fentaNYL 100 MCG/2 ML INJ 50 MCG IV (10:28)
[2021-09-25] MEDS: MIDAZOLAM 5 MG/5 ML VIAL IV (10:28)
[2021-09-25] MEDS: BUPIVACAINE 0.25% (PF) VIAL 2 ML INJ (10:31)
[2021-09-25] MEDS: IOPAMIDOL 15 ML VIAL 3 ML INJ (10:31)
[2021-09-25] MEDS: BETAMETHASONE 30 MG/5 ML MDV (10:32)
[2021-09-25] MEDS: methylPREDNISolone acetate 80 MG/ML VIAL INJ (10:32)
--- NOTE | 2021-09-25 10:41 | P.PCN_ITS ---
Date/Time/Diagnoses Date of procedure: 09/25/21 Time of procedure: 10:41 Pre-procedure diagnosis: 1. HNP WITH RADICULAR FEATURES, 2. MULTILEVEL CENTRAL STENOSIS This procedure is found to meet the Governor's proclamation 20-24.2 regarding non urgent procedures. This patient meets multiple criteria for the procedure including continuing or worsening of significant or severe pain, combined with further deterioration of the patient's condition or overall health as well as delay in treatment would be expected to result in less positive ultimate medical outcome. Therefore the decision to perform the procedure in an outpatient hospital setting is found to be in accordance with guidelines of the proclamation. Post-procedure diagnosis: same Procedure Notes Procedure: 1. FLUOROSCOPICALLY GUIDED CONTRAST CONTROLLED INTERLAMINAR EPIDURAL STEROID INJECTION -L4/5 Indications: Giorgi is referred by Dr. Nicholson for treatment of Bilateral Foraminal Stenosis R>L LE symptoms. Physician: Bill Rodríguez Total Fluoroscopy time (seconds): 6 Total sedation minutes: 8 Complications: none Procedure in detail & Post-procedure care: FINDINGS Multilevel Central Spinal Stenosis with Nerve Root Compression DESCRIPTION OF PROCEDURE Fluoroscopically guided, contrast-controlled L4/5 translaminar epidural steroid injection. Following review of allergy and review of potential side effects and complications, including, but not necessarily limited to, infection, allergic reaction, local tissue breakdown, temporary as well as permanent nerve injury, paralysis, stroke and possible , the patient indicated that the patient understood and agreed to proceed. An informed consent document was signed by the patient, witnessed by a nurse, and placed in the patient's chart. Additionally, other treatment options including modalities, medications, and physical therapy were reviewed with the patient. After review of previous anaesthesic history and IV conscious sedation the patient was deemed safe to proceed with today?s procedure with IV conscious sedation as ASA class II designation. Safety time-out was performed to confirm patient ID, procedure to be performed and site of procedure. IV sedation was accomplished with a combination of 3mg of Versed and 50mcg of Fentanyl was administered by the RN after DO order, titrated to patient comfort during the course of the procedure while the patient remained responsive to all verbal commands In the prone position, following sterile prep and drape of the lumbar region, the L4/5 translaminar space was identified fluoroscopically. The skin was anesthetized via a 25-gauge, 1.5inch needle with 1% lidocaine solution. At this point, a 22-gauge short bevel spinal needle was atraumatically introduced and advanced under fluoroscopic guidance into the region of the L4/5 translaminar space. Depth was confirmed on lateral view. Radiological data, including multiple fluoroscopic views of the lumbar spine, reveal a spinal needle at the L4/5 translaminar space. Lateral views then show placement of the needle in the epidural space. Subsequent views show contrast material flowing superiorly and inferiorly in the epidural space. No vascular or intrathecal uptake is observed. At this point, using loss of resistance technique with saline and air, the epidural space was entered. This was confirmed following negative aspiration with injection of approximately 1.5cc of Isovue 200, showing excellent epidural flow without vascular or intrathecal uptake. At this point, 1cc of 1% lidocaine solution combined with 3cc or 80mg of depomedrol and 12mg betamethasone was injected without incident. The patient tolerated the procedure well without signs or symptoms of complications prior to transfer to the recovery area continued monitoring without incident. The patient was then transferred to the recovery area where they were observed for an appropriate period of time after the injection. The patient reported a VAS score of 6 prior to the procedure and a post- procedure VAS of 0. POST OP INSTRUCTIONS The patient was provided a Pain Log to continue to record their response to the target-specific procedure prior to follow-up visit with their referring physician. Additionally, specific post-injection care instructions and a contact number to our office were provided if concerns arise regarding possible complications associated with the procedure are suspected.
== END 2021-09-25 11:05 | disposition home or self-care (01) ==
LOC: RAD 09:47
PROVIDERS: PCP Internal Medicine; Referring Provider Physical Medicine & Rehabilitation; Visit Provider Physical Medicine & Rehabilitation
DX: M51.16 Intervertebral disc disorders with radiculopathy, lumbar region (principal); M48.061 Spinal stenosis, lumbar region without neurogenic claudication
CPT/HCPCS: 62323; J0702; J1040; J2250; J3010

== ENCOUNTER → 2022-12-04 07:22 | Outpatient (CLI) | payer BC, SELFPAY ==
--- NOTE | 2022-12-04 07:25 | DI.RAD.S_ITS ---
PROCEDURE: XR SHOULDER RT MIN 2V INDICATIONS: RIGHT SHOULDER PAIN TECHNIQUE: 3 views of the shoulder were acquired. COMPARISON: None. FINDINGS: Bones: No fractures or dislocations. No suspicious bony lesions. Visualized ribs appear intact. Glenohumeral joint space narrowing with associated osteophytosis and subchondral sclerosis. Soft tissues: No suspicious soft tissue calcifications. IMPRESSION: Marked right shoulder osteoarthritis. Dictated by: Panda Rios M.D. on 12/04/2022 at 8:07 Approved by: Panda Rios M.D. on 12/04/2022 at 8:08
--- NOTE | 2022-12-04 07:25 | DI.RAD.S_ITS ---
PROCEDURE: XR SHOULDER LT MIN 2V INDICATIONS: LEFT SHOULDER PAIN TECHNIQUE: 3 views of the shoulder were acquired. COMPARISON: None. FINDINGS: Bones: No acute fractures or dislocations. No suspicious bony lesions. Visualized ribs appear intact. Marked glenohumeral joint space narrowing with large osteophytic change. Bony indentation along the lateral humeral head may indicate prior bony injury from a remote dislocation (Hill-Sachs fracture deformity). Soft tissues: No suspicious soft tissue calcifications. IMPRESSION: Marked left shoulder osteoarthritis. 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 Dictated by: Panda Rios M.D. on 12/04/2022 at 8:06 Approved by: Panda Rios M.D. on 12/04/2022 at 8:07
== END ==
PROVIDERS: PCP Internal Medicine; Referring Provider Physical Medicine & Rehabilitation; Visit Provider Physical Medicine & Rehabilitation
DX: M19.011 Primary osteoarthritis, right shoulder (principal); M19.012 Primary osteoarthritis, left shoulder; M25.511 Pain in right shoulder; M25.512 Pain in left shoulder; M48.062 Spinal stenosis, lumbar region with neurogenic claudication; S76.311S Strain of muscle, fascia and tendon of the posterior muscle group at thigh level, right thigh, sequela; G61.81 Chronic inflammatory demyelinating polyneuritis; I99.8 Other disorder of circulatory system; Z98.890 Other specified postprocedural states; Z98.1 Arthrodesis status
CPT/HCPCS: 20611; 73030; 99214; J0702

== ENCOUNTER → 2023-11-03 15:27 | Outpatient (CLI) | payer BC, SELFPAY ==
--- NOTE | 2023-11-10 17:24 | DIAB.MNT ---
Initial Diabetes Medical Nutrition Therapy Assessment Name: Luke Fisher (Samuel) Date: 11/03/23 Time: 335-435p Dx: Type II Diabetes Samuel presents for initial Dm visit via telehealth using [employer] Portal platform. 10/18 labs: hgA1c 6.1%. His main concern is neuropathy, which might be exacerbated by BG but does not seem to be directly caused by this, especially given his hgA1c <6.5%. He is avoiding CHO, ie rice. Feels this works well for him at this time. Trying to lose weight. Uses transportation wheel chair due to recent shoulder surgery, avoiding re injury. Keto feels sustainable for him. Likes protein and veggies. Has a garden/orchard. Diet Recall: 06-27: protein 6-8oz, veggies +/- Keto bread 6-8p: protein with veggies Sn: sugar free jello Beverages: water, no sugar beverages Usually no snacks. Protein: Pork, soto, beef, chicken, 1-2x per week fish, shellfish h/o beer consumption may have contributed to weight, FH of higher weight Soda once per month Use to drink ETOH daily (2-4 servings x 5 days per week), cut way back with neuropathy Neurologist in one month at [facility] neuropathy: told him neuropathy was likely from ETOH, back stenosis (treated about 1 year ago), B12 deficiency, prediabetes/diabetes Wants: info about nutrition Questions about ETOH type impact on BG. Takes B complex. Recent B12 lab in range 663 Wants fiber ideas Anthropometrics: Ht: 6'1 Wt: 354.2# 10/2023 Weight history: 304# 11/2022 r/t keto diet rx'd by Dr. Rodríguez per report Physical Activity: Has recumbent bike. Wants to restart. h/o 20-30 min per day on bike. h/o falls r/t neuropathy up to knee. Just finished shoulder PT. Self-Monitoring Blood Glucose: More data needed for review; however FBG may be improving and pc reading reported in goal per ADA or slight elevations per AACE. Bought Glucose meter, also getting one from insurance Using over the last two days. Fasting this morninmg/dl, 128 two weeks ago at physical Noon: first meal 2 hour pc 142mg/dl. 1-1.5c latvian chicken soup, 1c steak sous vide with water Diabetes Medications: None Pertinent Labs: HgA1c: 6.1% 10/2023 Past Medical History: (Last Reviewed 01/27/23 @ 11:46 by Bill Rodríguez DO) DJD of both shoulders Foraminal stenosis of lumbar region Hamstring tendon rupture Lumbar stenosis with neurogenic claudication Peripheral neuropathy Sensory peripheral neuropathy Status post lumbar spinal arthrodesis Vascular insufficiency Nutrition Rx: CCD Nutrition Diagnosis: - Predicted inadequate fiber intake r/t nutrition knowledge deficit aeb diet recall and pt report - Physical inactivity r/t shoulder surgery and h/o falls aeb pt report Intervention: This participant was very receptive. Provided appropriate educational handouts. Discussed the following topics: Completed intake assessment. Discussed barriers to care. Pathophysiology of T2DM Importance of self-monitoring, how often, and when to check. Suggested checking at different times to evaluate meals Plate Method, impact of macronutrients on blood sugar, meal timing, pairing macronutrients Recommended servings at meals and snacks High fiber foods Role of physical activity and following provider guidelines for safety BG goals, guidelines for DM management, impact of BG on neuropathy, impact of B12 deficiency and h/o ETOH on neuropathy Created SMART goals for patient self-care and success. Goals: Stationary bike 10 min 3-5 days per week If adding fruit, pair with protein Continue checking BG 1-2x per day Follow-up: DAVIN LEO follow-up recommended. Offered sooner visit, but he would like to follow-up in December. Margarita Rdz RDN, FELIPA Certified Diabetes Care and Independent Film Maker P: [phone] Thank you for this referral
== END ==
PROVIDERS: PCP Internal Medicine; Referring Provider Internal Medicine; Visit Provider Internal Medicine
DX: E11.40 Type 2 diabetes mellitus with diabetic neuropathy, unspecified (principal); Z71.3 Dietary counseling and surveillance
CPT/HCPCS: 97802

== ENCOUNTER → 2024-01-05 15:32 | Outpatient (CLI) | payer BC, SELFPAY ==
--- NOTE | 2024-01-26 13:44 | DIAB.MNTFU ---
Follow-up Diabetes Medical Nutrition Therapy Assessment Name: Luke Fisher (Samuel) Date: 01/05/24 Time: 330-430p Dx: Type II Diabetes Samuel presents for DM follow-up using Portal for this virtual visit. Recent [place] admission r/t blood clot and infection. Pain triggered in back from this per report. Treated with prednisone per report. Getting PT and OT therapies. Just saw PCP yesterday. Got muscle relaxers to help increase ability to exercise. -12# recently with hospitalization. Back on low carb/keto diet. Using urine test strips to determine ketones. Aiming for 20-30g CHO per day. Says he is unsure if he believes net carbs is actually true, not counting fiber toward carb amts. Frustrated that he is having to go through this, ie pain, therapies. New neurologist in January. Trying to lose wt. Feels this will help him get out of the wheelchair. Questions: Calcium and prednisone Inflammation and supplements Beets supplements Fiber somewhat low. Taking fiber gummies. BM going well. Diet Recall: 11a: Salad, 2 HB eggs, chicken, tomatoes, cheese, avocado dressing +/- low carb tortilla OR scrambled eggs with avocado Sn: nothing or string cheese snack bag of blueberries 630-730p: protein with veggies (coconut indian chx soup with veggies) Beverages: water, coffee, sparkling water, maybe sip of lemonade Anthropometrics: Ht: 6'1 Wt: Wt: pre admit 355# ; Recent visit 344# 12/15/23 Weight history: 354.2# 10/2023 304# 11/2022 r/t keto diet Physical Activity: PT exercises 2-3x per day. Self-Monitoring Blood Glucose: checking BG periodically. Highest 188 on prednisone in the morning. Lowest 98 pre dinner Date Pre Post Pre Post Pre Post 12/15 105 5/ 154 After coffee creamer 12/21 98 5/10 175 After coffee creamer 12/25 110 12/28 103 12/30 142 2.5h 01/04 113 Diabetes Medications: None Pertinent Labs: HgA1c: 6.1% 10/2023 Past Medical History: (Last Reviewed 12/15/23 @ 09:14 by Bill Rodríguez DO) Cellulitis DJD of both shoulders Foraminal stenosis of lumbar region Hamstring tendon rupture Lower extremity deep venous thrombosis Lumbar stenosis with neurogenic claudication Peripheral neuropathy Sensory peripheral neuropathy Status post lumbar spinal arthrodesis Vascular insufficiency Nutrition Rx: CCD Nutrition Diagnosis: - Predicted inadequate fiber intake r/t nutrition knowledge deficit aeb diet recall and pt report - in progress - Physical inactivity r/t shoulder surgery and h/o falls aeb pt report- in progress Intervention: This participant was very receptive. Provided appropriate educational handouts. Discussed the following topics: Blood sugar review and trends. Impact of food intake on results. when to check postprandial Heart health nutrition: fiber Eating out Supplements effectiveness and oversight and expense Calcium supplement and heart disease Meal planning and carb counting review Weight loss goals and strategies Created SMART goals for patient self-care and success. Goals: Stationary bike 10 min 3-5 days per week- d/c due to pain If adding fruit, pair with protein- continue Continue checking BG 1-2x per day- met Check FBG without coffee/creamer- new Check 1-2 hours postprandial (not 3-4 hours)- new Add flaxseed to salad- new Start tracking food intake - new Follow-up: DAVIN LEO follow-up in 3-4 weeks Margarita Rdz RDN, FELIPA Certified Diabetes Care and Safety Representative P: [phone] Thank you for this referral
== END ==
PROVIDERS: PCP Internal Medicine; Referring Provider Internal Medicine
DX: E11.9 Type 2 diabetes mellitus without complications (principal); Z71.3 Dietary counseling and surveillance
CPT/HCPCS: 97803